=== PATIENT | female | born 1930 | race Caucasian/White ===

== ENCOUNTER 2020-10-03 12:02 | Inpatient (IN) | payer OTHER ==
[~2020-10-03] VITALS: Ht 157.5 cm; Wt 47.7 kg
--- NOTE | ~2020-10-03 | HC ---
[facility] [place] [address] CONSULTATION Name: Room #: 202-P ADM IN M.R.#: [id number] Admission: 10/03/20 Attend Phys: Juan Sanchez MD Discharge: Date of : [birth year] Report #: [id number] THIS REPORT FOR: cc: Kylie Beauchamp MD, Nidal MD Wright,Ulysses Lara MD ~ DATE OF SERVICE: 10/08/2020 CHIEF COMPLAINT: Urinary retention. HISTORY OF PRESENT ILLNESS: This is an 89-year-old female who was admitted to [facility] on 10/03/2020 with acute mental status changes. She was found to have what appears to be a cerebrovascular accident. Neurology has been consulted and she has undergone medical treatment. She had contrasted CT scan of her head at the time of her initial visit. She had some noted abdominal swelling and a KUB was ordered yesterday. The KUB showed that she had some distention of her bladder with contrast retaining and a Thompson catheter was instilled into her urethra initially draining about 700 Ml; and since then, she has drained about 700 mL more of urine over the last 24 hours. She is a relatively poor historian. PAST MEDICAL HISTORY: Significant for cerebrovascular accident, anemia, atrial fibrillation. ALLERGIES: No known drug allergies. PAST UROLOGIC HISTORY: Unknown. MEDICATIONS: Currently in the hospital, she is on azithromycin, aspirin, vitamin D, Lovenox, ceftriaxone, diltiazem, digoxin, atorvastatin, and Haldol. PHYSICAL EXAMINATION: VITAL SIGNS: She is afebrile. Vital signs stable. GENERAL: Alert and oriented x 1. Mucous membranes are moist. EYES: Sclerae are anicteric. NECK: Supple. LUNGS: Clear. ABDOMEN: Soft, nontender. BACK: No CVA tenderness. Normal curvature. EXTREMITIES: No edema. Thompson catheter draining clear urine. PELVIS : Shows that she has no evidence of any pelvic organ prolapse. 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 LABORATORY DATA: Her urinalysis is negative. Her chemistry shows a creatinine [facility] [address] [place] [address] CONSULTATION Name: Room #: 202-[facility] IN M.R.#: [id number] Admission: 10/03/20 Attend Phys: Juan Sanchez MD Discharge: Date of : [birth year] Report #: [id number] of 1.3 at baseline. Electrolytes are otherwise stable. White blood cell count is 12,000, hemoglobin is 8.5, and platelets are 210. KUB shows distended bladder with no evidence of contrast in her kidneys. Renal sonogram was performed and it shows that she has small kidneys and a nondistended bladder. There is mild pelviectasis on the left side, no hydronephrosis, and a questionable echogenic focus, possibly a stone in the right lower kidney. ASSESSMENT AND PLAN: 1. Retained contrast in bladder with likely chronic urinary retention. She has no associated hydronephrosis with this. Her creatinine is 1.3 and at baseline. This is likely chronic state for her. 2. Acute mental status changes with cerebrovascular accident. 3. Anemia. PLAN: 1. She is going to rehabilitation. We will recommend for her to start Flomax and, when she is more ambulatory in a couple of days, perform a voiding trial to see if she drains her bladder. 2. Aggressive bowel management since she has not had a bowel movement over 4 days; and once she has her bowel movement, this should help alleviate some of her retention issues as well. We will have Ms. Mar Wagner follow up with her in the next few days to initiate her voiding trial in the future. Questions all answered with her and the nursing staff. By: [id number] Ulysses Venegas MD /nt
[~2020-10-03 12:02] MED LIST: ASPIRIN325 PO
[2020-10-03 12:18] VITALS: BP 109/85
[2020-10-03 12:35] LABS: ABSOLUTE NEUTROPHILS 5.9 thou/uL (1.4-8.2); HEMOGLOBIN 8.6 gm/dL (12.0-15.0); LYMPHOCYTES 20.3 % (24.0-44.0); MCH 37.5 pg (26.0-34.0); MCHC 33.1 g/dL (28.0-37.0); MCV 113.3 fL (80.0-100.0); MONOCYTES 10.7 % (1.0-8.0); PLATELET COUNT 282 thou/uL (150-400); RDW 19.1 % (10.5-14.5); WBC 8.9 thou/uL (4.0-11.0)
[2020-10-03 12:56] LABS: ANION GAP 8 mmol/L (7-16); BUN 20 mg/dL (7-18); CHLORIDE 106 mmol/L (98-107); CO2 29 mmol/L (21-32); CREATININE 1.3 mg/dL (0.6-1.0); GLUCOSE 121 mg/dL (74-106); POTASSIUM 4.2 mmol/L (3.5-5.1); SODIUM 143 mmol/L (136-145)
[2020-10-03 12:57] LABS: PROTIME 10.9 Seconds (9.3-11.4)
[2020-10-03] MEDS ORDERED: LISINOPRIL2.5 MG PO (13:00)
[2020-10-03] MEDS ORDERED: LOPRESSOR50 PO (13:00)
[2020-10-03] MEDS ORDERED: DIGOXIN125 MCG PO (13:00)
[2020-10-03 13:06] LABS: ALBUMIN 3.7 g/dL (3.4-5.0); SGOT 9 U/L (15-37); SGPT 15 U/L (30-65); TOTAL BILIRUBIN 0.6 mg/dL (0.2-1.0); TOTAL PROTEIN 7.6 g/dL (6.4-8.2); TROPONIN-I <0.06 ng/mL (<0.06)
[2020-10-03 14:06] LABS: URINE BILIRUBIN NEGATIVE (Negative); URINE BLOOD NEGATIVE (Negative); URINE CLARITY CLEAR; URINE COLOR YELLOW; URINE GLUCOSE-RANDOM* NEGATIVE (Negative); URINE KETONES NEGATIVE (Negative); URINE LEUKOCYTES-REFLEX NEGATIVE (Negative); URINE NITRITE-REFLEX NEGATIVE (Negative); URINE PROTEIN (DIPSTICK) NEGATIVE (Negative); URINE UROBILINOGEN 0.2 E.U./dl (0.2-1.0)
--- NOTE | 2020-10-03 14:19 | NUR ---
SPEECH THERAPY CALLED FOR CONSULT AT THIS TIME
--- NOTE | 2020-10-03 15:37 | EKG ---
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 : 1930 Requested By: Alex Sow Order Number: [id number] : Maurilio Fernandes Measurements Intervals [place] Rate: 66 P: MN: QRS: -9 QRSD: 89 T: -49 QT: 360 QTc: 378 Interpretive Statements Atrial fibrillation Low voltage, extremity leads LVH with secondary repolarization abnormality Anterior Q waves, possibly due to LVH No previous ECG available for comparison Electronically Signed On 10-03-2020 15:37:33 DRESSMAKING TEACHER by Maurilio Fernandes [email or web address] <ELECTRONICALLY SIGNED> By: Maurilio Fernandes MD, [facility] 10/03/20 1537 1255 1255 Maurilio Fernandes MD, FACC /EPI
[2020-10-03 15:58] VITALS: BP 176/79
[2020-10-03 16:12] VITALS: BP 143/78
--- NOTE | 2020-10-03 17:40 | NUR ---
TO UNIT FROM E.D. BY CART. IMMEDIATELY COMBATIVE, HITTING, SCRATCHING, KICKING. MOSTLY UNINTELLIGIBLE SPEECH EXCEPT FOR CURSE WORDS. YELLS AT TIMES. DR. DE GUZMAN CALLED FOR ORDERS. FALL PRECAUTIONS IN PLACE. SITTER AT BEDSIDE.
[2020-10-03 19:40] VITALS: BP 141/82
[2020-10-03 19:57] LABS: ANISOCYTOSIS 2+; MACROCYTES 3+
[2020-10-04 01:06] LABS: GLYCOHEMOGLOBIN (HGB A1C) 5.5 % (4.8-5.6)
[2020-10-04 05:31] LABS: HEMATOCRIT 25.7 % (37.0-47.0); HEMOGLOBIN 8.3 gm/dL (12.0-15.0); MCH 36.4 pg (26.0-34.0); MCHC 32.2 g/dL (28.0-37.0); RBC 2.27 mil/uL (4.20-5.00); WBC 12.5 thou/uL (4.0-11.0)
[2020-10-04 05:46] LABS: ANION GAP 11 mmol/L (7-16); BUN 16 mg/dL (7-18); CALCIUM 8.6 mg/dL (8.5-10.1); CHLORIDE 105 mmol/L (98-107); CHOLESTEROL 138 mg/dL (<200); CO2 25 mmol/L (21-32); CREATININE 1.3 mg/dL (0.6-1.0); GLUCOSE 138 mg/dL (74-106); HDL CHOLESTEROL 58 mg/dL (>40); LDL CHOLESTEROL 67 mg/dL (<100); POTASSIUM 3.6 mmol/L (3.5-5.1); SODIUM 141 mmol/L (136-145); TC:HDL 2.4 Ratio (Not establshd); TRIGLYCERIDE 65 mg/dL (<150); VLDL 13 mg/dL (<40)
[2020-10-04 06:02] LABS: SERUM ASSESSMENT Clear
--- NOTE | 2020-10-04 06:21 | NUR ---
PT SLEPT THROUGH SOME OF THE NIGHT. PT WILL BE COMBATIVE AND REFUSE CARES. ALERT TO SELF. NIH OF 3-4. WILL YELL AND GET AGIGTATED AT TIMES. FALL PRECAUTIONS IN PLACE. CONTINUING TO ASSESS CLOSESLY ACCORDING TO POC.
[2020-10-04 08:38] VITALS: BP 143/69
[2020-10-04 12:47] VITALS: BP 149/57
[2020-10-04 16:11] VITALS: BP 130/75
[2020-10-04 19:18] VITALS: BP 101/71
[2020-10-05 03:37] VITALS: BP 128/102
--- NOTE | 2020-10-05 05:24 | NUR ---
PT SLEPT THROUGH MOST OF THE NIGHT. PT IS ALERT TO SELF; CONFUSED. WILL GET AGITATED WHEN TOUCHED. PRN MEDS GIVEN. NIH SCORES OF 5. GARBLED WORDS; HARD TO UNDERSTAND AT TIMES. INCONTINENT OF URINE AND BOWEL; WEARING BRIEF. ASSESSMENTS CHARTED. FALL PRECAUTIONS IN PLACE. CONTINUING TO ASSESS ACCODING TO POC.
[2020-10-05 07:57] VITALS: BP 134/91
[2020-10-05 09:06] LABS: HEMATOCRIT 24.7 % (37.0-47.0); HEMOGLOBIN 8.2 gm/dL (12.0-15.0); MCH 38.1 pg (26.0-34.0); MCHC 33.4 g/dL (28.0-37.0); MCV 113.9 fL (80.0-100.0); RBC 2.17 mil/uL (4.20-5.00); RDW 18.2 % (10.5-14.5); WBC 8.9 thou/uL (4.0-11.0)
[2020-10-05 09:25] LABS: CALCIUM 8.4 mg/dL (8.5-10.1); CREATININE 1.4 mg/dL (0.6-1.0); POTASSIUM 3.8 mmol/L (3.5-5.1)
[2020-10-05 11:30] VITALS: BP 118/71
--- NOTE | 2020-10-05 13:45 | NUR ---
Case opened to follow for dc planning needs. Pt here with possible CVA and nuero workup is in progress with an EEG this am and MRI this afternoon. Pt is being evaluated by PT/OT/ST and [facility] rehab medicine. Pt's spouse [place] at bedside this am. He indicates that he is his 's caregiver due to her dementia. She is sba with gait and does not like to use an assistive device. They do have a cane and a FWW at home. He manages her medications and provides supervision and setup for adl's. He does all the IADL's. They have 14 steps to enter their home and then she can stay on the main level. She does have incont pending her diet and refuses to wear a brief. They have had [facility] in the past and would want to use them again at dc if needed. Her pcp is Dr.Nidal Beauchamp of the [facility] ([facility]). The pt is A&Ox1 during our visit and relies on spouse to answer questions. Pt's spouse is open to 5N acute rehab if recommended by the care. Should her stroke workup be negative he might be open to SNF at [facility], [facility] or [facility] pending her progress. Private duty and HH f/u discussed. He does feel they will need some private duty in the future as they have limited support system and no family locally. Support provided. Pt now on pureed diet with nectar thickened liquids trail per ST. Will follow.
[2020-10-05 15:27] VITALS: BP 146/81
--- NOTE | 2020-10-05 18:36 | HC ---
[facility] [place] [address] CONSULTATION Name: Room #: 202-P ADM IN M.R.#: [id number] Admission: 10/03/20 Attend Phys: Juan Sanchez MD Discharge: Date of : [birth year] Report #: [id number] THIS REPORT FOR: cc: Kylie Beauchamp MD, Nidal MD Khosla,Josué Greene MD ~ DATE OF SERVICE: 10/04/2020 HISTORY OF PRESENT ILLNESS: This is an 89-year-old female patient, who was seen by me late evening yesterday and the note is being dictated today. This patient was actually seen by me in the Emergency Room when the patient came in, but as I understood from the Emergency Room physician, they did not think I need to see the patient after talking to the patient's and I did not follow up this patient. This patient has presented with an altered mental status. We talked about TPA in this patient, but the declined TPA. As I understood from the Emergency Room physician, he did not think the patient wanted aggressive measures. Her quality of life was very poor and those things as summarized in the Emergency Room physician's note and Neurology consult was not requested at that time, even if it had come to Emergency Room and I did not see the patient or did the consultation. I tried to see her last night. She is pretty much unresponsive. She opens her eyes, but she does not do anything for me. She does not even follow simple commands. REVIEW OF SYSTEMS: From the record. It was carried out from the records and it looks like this patient has a history of atrial fibrillation and her EKG does show atrial fibrillation. Chest x-ray shows infiltrate. Her white count is up. This is a relevant 14-point review of system that I can get on this patient. A 14-point review of system was difficult and I did not call the patient's last night because it was late, but I will try to call him this morning, later on today. PAST MEDICAL HISTORY: Appeared to be positive for dementia and the patient needs a lot of help. FAMILY HISTORY: Unavailable. SOCIAL HISTORY: She needs a lot of help from the . PHYSICAL EXAMINATION: Indicate that she wakes up. To me, she does not say anything. She does not even follow commands on a regular basis. That makes the examination very difficult. I tried to do the cranial nerve examination, but she could not cooperate. Similarly, I tried to do the neuromuscular examinations. I can tell about the focality. When she came in, she was having [facility] [address] [place] [address] CONSULTATION Name: DARREN Room #: 202-P ADM IN M.R.#: [id number] Admission: 10/03/20 Attend Phys: Juan Sanchez MD Discharge: Date of : [birth year] Report #: [id number] altered mental status. She has atrial fibrillation. She is very thinly built individual, who I think she can hear and see, but her mentation is bad enough that she is unable to follow any commands. Her last blood pressure is 128/102, respirations 17, pulse is 97.9. Her GFR is low, but has not changed much even after contrast. She does not appear to be in respiratory difficulty. IMPRESSION: This patient had presented with altered mental status to Emergency Room and I had actually come to see this patient in the Emergency Room, but the consult was canceled because the patient's has declined aggressive treatment. My feeling was to give TPA in this patient and do the further workup for thrombectomy, but the declined TPA. No thrombus was found to present the information again to the to see if we want to do anything in that regard. She was not a thrombectomy candidate. First thing we need to decide is how aggressive to be in this patient. If we need to be aggressive, she needs an MRI to look for a stroke, which is a possibility. If we need to be aggressive, then the anticoagulation need to be considered, but my feeling from the was that he wants very conservative care and does not want any aggressive treatment and in that case, we need to plan accordingly and may consider something else like hospice on her. She also has increasing white count and chest x-ray appeared to be showing some infiltrate and that may be contributing to her altered mental status by causing encephalopathy, superimposed and underlying dementia, but the possibility of stroke also need to be excluded. I will talk to the hospitalist as well as this morning and then further management can be done. Thank you very much for this referral. <ELECTRONICALLY SIGNED> By: Josué Rios MD 10/05/20 1836 0540 [id number] Josué Rios MD /nt
[2020-10-05 19:52] VITALS: BP 127/65
--- NOTE | 2020-10-05 20:39 | NUR ---
PT APPEARS TO BE AT BASELINE. ABLE TO TELL ME HER NAME AND ANSWERS YES NO QUESTIONS. UP WITH ASSIST TO RECLINER. DOES NOT PULL AT LINES OR BECOME COMBATIVE. NO HALDOL ADMISTERED. ST CHARLEY SERRAT C NOTES. MEDS GIVEN CRUSHED WITH APPLE SAUCE. EEG COMPLETED SEE NOTES. HIGH FALL RISK. PT UNABLE TO DEMONSTRATE CALL LIGHT. CLOSE TO NURSE STATION. STAFF TO ANTICIPATE NEES. AND PROVIDE OVERSIGHT.
[2020-10-06 03:57] VITALS: BP 167/62
[2020-10-06 05:22] LABS: HEMATOCRIT 22.5 % (37.0-47.0); HEMOGLOBIN 7.4 gm/dL (12.0-15.0); MCH 37.8 pg (26.0-34.0); MCV 114.3 fL (80.0-100.0); RBC 1.97 mil/uL (4.20-5.00); RDW 18.4 % (10.5-14.5); WBC 8.5 thou/uL (4.0-11.0)
[2020-10-06 05:31] LABS: CALCIUM 8.3 mg/dL (8.5-10.1); CREATININE 1.5 mg/dL (0.6-1.0); POTASSIUM 3.6 mmol/L (3.5-5.1)
[2020-10-06 07:19] VITALS: BP 130/58
[2020-10-06 07:55] LABS: % SATURATION 50 % (20-39); IRON 68 ug/dL (50-170); TIBC 135 ug/dL (250-450)
--- NOTE | 2020-10-06 08:00 | NUR ---
ASSUME CARE 1900. PT/VITALS STABLE. BP RUNS HIGH SOMETIMES. NO PAIN NOTED. POOR TOLERANCE TO ACTIIVTY. ASSESSMENT ASA CHARTED. PROGRESSING SLOWLY WITH POC. PLAN IS FOR PT TO HAVE MRO TODAY. NO DISTRESS NOTED. WILL CONTIUE TO MONITOR AND FOLLOW WITH POC
[2020-10-06 08:11] LABS: FOLIC ACID 15.2 ng/mL (8.6-58.9)
--- NOTE | 2020-10-06 09:55 | NUR ---
CALLED AND WAS ABLE TO FILL OUT THE MRI FORMS WITH HIS HISTORY INFORMATION. STILL PENDING MRI, FAX'D TO THEM THIS AM-FORM.
--- NOTE | 2020-10-06 13:17 | NUR ---
WOUND CONSULT; ASSESSMENT OF THE RIGHT ARM REVEALED AN OLD DKIN TEAR WITH SACBBED AREAS. THE PATIENT IS PLEASANTLY CONFUSED. TRYING TO GET UP AND PULLING AT HER DRESSING ETC. RECOMMENDATIONS; A SILVER FOAM DRESSING SECURED WITH A TUBIGRIP. DISCUSSED WITH THE RN AND HER ATTEMPS TO GET UP.
--- NOTE | 2020-10-06 13:28 | NUR ---
PATIENT HAS DIAGNOSIS OF ACUTE CVA. PATIENT IS APPROPRIATE FOR ACUTE REHAB. AUTHORIZATION REQUESTED FROM INSURANCE THIS DATE FOR ACUTE REHAB STAY. AWAITING RESPONSE. UNLIKELY TO RECEIVE A RESPONSE PRIOR TO FRIDAY. THANK YOU FOR THIS REFERRAL.
--- NOTE | 2020-10-06 13:49 | NUR ---
MRI + for stroke. [facility] acute rehab has accepted and submitting for ins auth today. PT/OT/ST working with the pt. Spouse agreeable to acute rehab. Will follow.
--- NOTE | 2020-10-06 15:16 | NUR ---
FAXED CLINICAL UPDATE TO [facility] RECEIVED CONFIRMAITON AND LEFT MSG WITH INTAKE.
[2020-10-06 15:30] VITALS: BP 167/75
--- NOTE | 2020-10-06 15:48 | NUR ---
FAXED CLINICAL UPDATE TO [facility] SPOKE WITH [facility] IN INTAKE THEY CAN RESUME CARE AT DC IF NEEDED.
--- NOTE | 2020-10-06 15:52 | NUR ---
BACK OT BED POST PT/OT WORKING WITH HER, SHE IS PRETTY TIRED NOW OVERALL HAD A BUSY MORNING WITH MRI AND UP OUT OF BED X2.
--- NOTE | 2020-10-06 17:41 | NUR ---
CALLED TO UPDATE HIM ON HER MRI RESULTS AND THAT IT WAS + FOR A STROKE. HE WAS RELIEVED ALMOST SOUNDING TO LEARN OF SUCH AND IS "LOOKING FORWARD TO HER GETTING SOME REHAB UP ON 5N UNIT ON FRIDAY". EXPLAINED SHE HAD A GOOD DAY TODAY AND PT/OT WORKED HER HEAVILY AND SHE SLEPT AND ATE MUCH MORE THEN I HAVE SEEN PRIOR.
[2020-10-06 20:00] VITALS: BP 155/57
[2020-10-06 23:42] VITALS: BP 145/69
[2020-10-07] VITALS (8 sets, daily range): BP systolic 134–174; BP diastolic 60–96
[2020-10-07 05:59] LABS: HEMOGLOBIN 6.9 gm/dL (12.0-15.0); MCH 38.3 pg (26.0-34.0); WBC 7.9 thou/uL (4.0-11.0)
[2020-10-07 06:01] LABS: HEMATOCRIT 20.6 % (37.0-47.0); MCHC 33.4 g/dL (28.0-37.0); MCV 114.6 fL (80.0-100.0); RBC 1.8 mil/uL (4.20-5.00); RDW 18.2 % (10.5-14.5)
[2020-10-07 06:05] LABS: CALCIUM 8.9 mg/dL (8.5-10.1); CREATININE 1.3 mg/dL (0.6-1.0); MAGNESIUM 2.1 mg/dL (1.8-2.4); POTASSIUM 3.3 mmol/L (3.5-5.1)
--- NOTE | 2020-10-07 06:40 | NUR ---
ASSUME CARE 1900. PT/VITALS STABLE. A/O TO PERSON. AN STATE NAME AND DATE OF . FOLLOWS COMMANDS. NO AGGRESSION/ANXIETY NOTED. PT IS PLEASANT. NO RESIDUAL NOTED FROM CVA. NIH =1. ADEQUATE REST NOTED THROUGH THE NIGHT. NO DISTRESS NOTED. AFIB ON MONITOR WITH HR SOMTIMES IN ONE-TEES TO 120s. HOWEVER, HR MOSTLY CONTROLLED. ASSESSMENT CHARTED. PROGRESSING WELL WITH POC. PLAN IS POSSIBLE DISCHAGE WITHIN A FEW DAYS. WILL CONTINUE TO MONITOR AND FOLLOW WITH POC.
--- NOTE | 2020-10-07 15:00 | NUR ---
PT IS AWAKE, ORIENTED TO PLACE. PT HGB AT 6.[address] MONTIEL CONSULTED. PT CONSENT TO RECEIVE BLOOD PRODUCT SIGNED BY . PT RECEIVING ONE UNIT OF RBCS. NO REACTIONS NOTED. PT IS RESTING COMFORTABLY. FALL PRECAUTIONS IN PLACE. WILL CONTINUE TO MONITOR TOLERANCE OF BLOOD PRODUCT/FLUIDS. PT LEFT. NO CONCERNS AT THIS TIME.
--- NOTE | 2020-10-07 16:38 | NUR ---
ASSUMMED PT CARE AT APPROXIMATELY 0700. PT A&O X1. HX OF DEMENTIA. ASSESSMENT CHARTED. FALL PRECAUTIONS IN PLACE. PT DENIES HAVING CHEST PAIN. PT DENIES HAVING SOB. INFORMED DR. MONTIEL OF LOW HGB LEVEL. ONE UNIT OF RBC TRANSFUSED. PT TOLERATED TRANSFUSION. VITAL SIGNS STABLE. INFORMED PT'S OF POC. PT'S STATED UNDERSTANDING AND DENIED HAVING FURTHER QUESTIONS. PT UP TO CHAIR THROUGHOUT SHIFT. ENCOURAGED PT TO EAT AND DRINK. PT HAS LOW APPETITE. PT COMFORTABLE. PT DENIES HAVING FURTHER CONCERNS.
--- NOTE | 2020-10-07 17:06 | NUR ---
PT IS ORIENTED TO SELF; PT WAS ENCOURAGED TO EAT LUNCH AND DINNER. PT ONLY WANTED NECTAR THICK WATER, WHICH MEDICATIONS WERE GIVEN. PT LEFT PRIOR TO GIVING BLOOD PRODUCT. PT STATED "HE NEVER CAME BACK." POC TO CONTINUE TO ENCOURAGE FLUIDS AND EATING. PT IS ON PUREED THICK/NECTAR THICK DIET. SIMULATION TECHNICIAN AND RN HAVE ASSISTED PT WITH FEEDING. PT REFUSED LUNCH AND DINNER, MAGIC CUP AND ENSURE PUDDING.
[2020-10-07 18:06] LABS: HEMATOCRIT 30.6 % (37.0-47.0)
[2020-10-07 18:10] LABS: HEMOGLOBIN 10.1 gm/dL (12.0-15.0)
[2020-10-08 04:44] VITALS: BP 157/56
[2020-10-08 04:51] LABS: HEMATOCRIT 25.7 % (37.0-47.0); HEMOGLOBIN 8.5 gm/dL (12.0-15.0); MCH 35.3 pg (26.0-34.0); MCHC 33.3 g/dL (28.0-37.0); RBC 2.42 mil/uL (4.20-5.00); RDW 24.3 % (10.5-14.5); WBC 12.9 thou/uL (4.0-11.0)
[2020-10-08 05:03] LABS: MCV 106.2 fL (80.0-100.0)
[2020-10-08 05:06] LABS: CALCIUM 8.4 mg/dL (8.5-10.1); CREATININE 1.3 mg/dL (0.6-1.0)
[2020-10-08 05:11] LABS: POTASSIUM 4.5 mmol/L (3.5-5.1)
--- NOTE | 2020-10-08 06:28 | NUR ---
SLEPT MOST OF SHIFT. REMAINS ORIENTED X1 AND KNOWS SHE IS NOT HOME. TEMP THIS AM 100.6 AXILLARY, ROOM VERY WARM AND PATIENT WITH SEVERAL BLANKETS. BLANKETS REMOVED TEMP IN ROOM ADJUSTED AND FAN ON. NO COMPLAINTS OF PAIN. WORKING ON GOALS AND PLAN OF CARE FOR NOC. CONTINUE TO ASSES.
[2020-10-08 07:09] VITALS: BP 150/53
[2020-10-08 11:17] VITALS: BP 146/55
[2020-10-08 15:24] VITALS: BP 143/60
--- NOTE | 2020-10-08 15:29 | NUR ---
PT IS AWAKE, ORIENTED TO SELF ONLY. PT HAS STATED THAT SHE IS "READY TO GO." PT AT BEDSIDE THIS AM. CONDUCTED EDUCATION ON PT'S DIET OF PUREED/HONEY THICK. PT HAS BEEN SOMNOLENT THIS PM. POC IS TO CONTINUE ABX; MONITOR HR/BP. PT IS RESTING COMFORTABLY, DENIES PAIN. FALL PRECAUTIONS IN PLACE. NO CONCERNS AT THIS TIME.
--- NOTE | 2020-10-08 20:12 | NUR ---
REVIEWED ALL DOCUMENTATION COMPLETED BY ROE IZAGUIRRE RN. THIS RN AGREES WITH ALL CURRENT CHARTING AND DOCUMENTATION.
[2020-10-08 21:10] VITALS: BP 153/70
[2020-10-09 03:50] VITALS: BP 147/72
[2020-10-09 04:45] LABS: CALCIUM 8.2 mg/dL (8.5-10.1); CREATININE 1.2 mg/dL (0.6-1.0); MAGNESIUM 1.9 mg/dL (1.8-2.4); POTASSIUM 3.7 mmol/L (3.5-5.1)
[2020-10-09 05:05] LABS: HEMATOCRIT 24.9 % (37.0-47.0); HEMOGLOBIN 8.4 gm/dL (12.0-15.0); MCHC 33.5 g/dL (28.0-37.0); MCV 107.4 fL (80.0-100.0); RBC 2.32 mil/uL (4.20-5.00); RDW 23.9 % (10.5-14.5); WBC 8.7 thou/uL (4.0-11.0)
--- NOTE | 2020-10-09 06:20 | NUR ---
SLEPT PART OF SHIFT. WORKING ON GOALS AND PLAN OF CARES FOR NOC. PROGRESSING TOWARDS TRANSFER TO REHAB SOON. DENIES COMPLAINTS OF PAIN. REMAINS ORIENTED TO SELF ONLY, KNOWS SHE IS NOT HOME AND STATES "I'M READY TO ". CONTINU TO ASSES CLOSELY.
[2020-10-09 08:44] VITALS: BP 152/70
--- NOTE | 2020-10-09 10:45 | EEG ---
[facility] [place] [address] ELECTROENCEPHALOGRAM Name: Room #: 202-P ADM IN M.R.#: [id number] Admission: 10/03/20 Attend Phys: Juan Sanchez MD Discharge: Date of : [birth year] Report #: [id number] THIS REPORT FOR: //name// DATE OF SERVICE: 10/05/2020 This patient is being evaluated for altered mental status. EEG was done by placing the electrode by standard 10-20 system of electrode placement. Both referential and sequential montages were used for recording. Background activity in this patient is difficult to determine because it is low voltage. It would appear it is about 6-7 Hz and 10-15 microvolt. It is a poorly formed throughout the record. Photic stimulation is unremarkable. No active epileptiform activity was noticed. The patient appeared to be drowsy during part of this EEG and that is associated with bilateral slowing. IMPRESSION: This is an abnormal EEG because it is disorganized and poorly formed. That is a nonspecific abnormality, which can occur with encephalopathy, effect of psychotropic medication, dementia, etc. Clinical correlation is recommended. <ELECTRONICALLY SIGNED> By: Josué Rios MD 10/09/20 1045 [id number] Josué Rios MD /nt
[2020-10-09 12:36] VITALS: BP 133/58
--- NOTE | 2020-10-09 15:22 | NUR ---
Spoke with patient and spouse at bedside. [facility] in process of submitting auth. Discussed with spouse options for post acute care if insurance does not auth [facility]N. Reviewed [employer] list. Some facilities are allowing visitor after quantine. Spouse interested in those facilities. If [facility] allows visitors spouse would want referral to [facility]. Mentioned to spouse quarantine initially at skilled facility then visits but unsure spouse understood that would imply no visitors for 14 days initially. Spouse reports even with assistance from staff unable to zoom or use ipad. Spouse reports he has a cell phone but does not use. To reach spouse call his landline phone. Called spouse initially prior to visit to hospital and phone rang with no answering machine. Patient/spouse strongly prefer acute rehab [facility]. casemgt following.
--- NOTE | 2020-10-09 15:58 | NUR ---
report given to gab hernandez pt transferred to room 234.
--- NOTE | 2020-10-09 16:24 | NUR ---
PT TRANSFERRED FROM [address] [place] [address] TO ROOM 434 REPORT FROM 2N NURSE. Holly 98.2 20 55 135/75 O2SAT= 97% RA. PT ALERT TO SELF . IV ABT INFUSING ORDERED. PT W/O PAIN OR RESP DISTRESS. AT BEDSIDE.
--- NOTE | 2020-10-09 17:04 | NUR ---
CALL RECEIVED AT 5:00 PM THIS DATE FROM [employer] INSURANCE WITH DENIAL FOR ACUTE REHAB ADMISSION. REASON GIVEN WAS THAT "LEVEL OF CARE NOT NEEDED." PEER TO PEER CAN BE PERFORMED AND MUST BE INITIATED BY 12:00/NOON 10/10/20 - PHONE NUMBER [phone]. COOK'S ASSISTANT INFORMED.
[2020-10-09 22:00] VITALS: BP 137/75
[2020-10-10 03:21] VITALS: BP 146/88
--- NOTE | 2020-10-10 03:30 | NUR ---
ASSUMED PT CARE AT 1900.PT LETHARGIC AT START OF SHIFT.PT EASILY AROUSABLE NOW.ALERT TO SELF,CONFUSED AND FORGETFUL.VSS.PT WITH COUGH WHENEVER SHE DRINKS HER HONEY THICK LIQUID.MEDS CRUSHED IN PUDDING,PT CHRISTOPHER WELL.STOOL FOR OCCULT BLOOD STILL NEEDED,NO STOOL NOTED SO FAR.DRSG TO HER R ARM STILL INTACT.CALL LIGHT WITHIN REACH.
[2020-10-10 08:39] VITALS: BP 133/65
--- NOTE | 2020-10-10 08:39 | NUR ---
ON-GOING ASSESSMENT: CM REVIEWED CHART. PT WAS TRANSFERED YESTERDAY FROM . CM WAS NOTIFIED BY [facility] ON [facility] THAT INSURANCE DENIED ACUTE REHAB. CM REACHED OUT AND SPOKE WITH PATIENTS VISITING IS VERY IMPORTANT TO HIM. CM DISCUSSED MOST SNF DO NOT ALLOW VISITORS AT THIS TIME BUT SOME ALLOW VISITATION AFTER 14 INITIAL DAYS OF QUARENTINE. PTS STATING HE IS INTERESTED IN [facility] THEY ALLOW A VISITOR AFTER 14 DAYS OF QUARENTINE. CM FAXED REFERRAL TO [facility]. CM SENT UPDATES THIS AM AND ASKED THAT THEY REVIEW AND SUBMIT FOR AUTH. CM WILL CONTINUE TO FOLLOW TO ASSIST NEEDED.
[2020-10-10 18:29] VITALS: BP 135/68
--- NOTE | 2020-10-10 18:57 | NUR ---
ASSUMED PATIENT CARE AT 0700. A/O X2. GENERLIZED WEAKNESS. ASSISTED PATIENT WALK WITH WALKER TO BATHROOM. ASSISTED PATIENT MEELS. . SLOWLY TOWARDS POC GOALS.
[2020-10-10 20:34] VITALS: BP 171/76
--- NOTE | 2020-10-11 03:26 | NUR ---
PT MORE AWAKE TODAY.PT UNABLE TO VOICE CONCERNS.PT INCONTINENT OF BMXI,UNABLE TO COLLECT STOOL BC IT WAS SMEARED ON THE BED.PT STILL CONFUSED AND FORGETFUL.DRSG TO THE SKIN TEAR ON HER RFA CHANGED,COVERED WITH TUBIGRIP.BARTLETT CATH TO DD WITH BLOOD TINGED URINE NOTED IN THE BAG.SWALLOW PREC. IN PLACE. PT SLEEPING ON HER BED AT THIS TIME,CALL LIGHT WITHIN REACH.
[2020-10-11 05:55] VITALS: BP 144/72
[2020-10-11 07:45] VITALS: BP 166/75
[2020-10-11] MEDS ORDERED: FLOMAX0.4 MG PO (14:42)
[2020-10-11] MEDS ORDERED: LIPITOR 20 MG T20 M1 PO (14:44)
[2020-10-11] MEDS ORDERED: VITAMIN D21250 MC1 PO (14:45)
--- NOTE | 2020-10-11 15:21 | NUR ---
on-going assessment: CM REVIEWED CHART AND SPOKE WITH LIASON FROM [facility] TO SEE IF THEY CAN ACCEPT PATIENT TODAY. THEY REPORT THEY ARE REQUESTING ANOTHER NEGATIVE COVID TESET DUE TO THEM REQUIRING TWO NEGATIVE TEST IN ORDER TO GO TO THE [facility]. CM NOTIFIED BEDSIDE RN. RESULTS OF THE TEST WERE FAXED TO FACILITY. LIASON FROM [facility] STATES THEY CAN ONLY ACCEPT ONE ADMISSION IN THE PM AND THEY ALREADY HAVE ACCEPTED SOMEONE SO PATIENT WILL NOT BE ABLE TO GO UNTIL THE AM. CM NOTIFIED ATTENDING WELL PATIENTS WHO IS AGREEABLE WITH THE PLAN. CM WILL CONTINUE TO FOLLOW, [facility] REQUEST DISCHARGE ORDERS TOMORROW AM SOON POSSIBLE. CM NOTIFIED ATTENDING.
[2020-10-11 17:00] VITALS: BP 128/62
--- NOTE | 2020-10-11 17:48 | NUR ---
PT WAS SEEN TODAY BY , WAS SCHEDULED FOR DISCHARGE BUT DUE TO PT'S BED BEING TAKEN UP BEFORE PT TRANSPORTAION COULD BE SET UP, DISCHARGE WILL HAVE TO WAIT UNTIL TOMORROW MORNING. PT'S COVID TEST CAME BACK NEGATIVE, WILL BE DISCHARGE, CASE MANAGMENT FOLLOWING. RN SIGNING OFF
[2020-10-11 19:04] VITALS: BP 173/87
[2020-10-12 04:13] VITALS: BP 165/94
--- NOTE | 2020-10-12 05:41 | NUR ---
ASSUMED CARE AT 1900. PT DENIES PAIN OR NAUSEA. PLEASANTLY CONFUSED. ONE EPISODE WHERE SHE GOT OUT OF BED, BED ALARM SOUNDED BUT SHE WAS VERY QUICK AND HAD ALREADY SAT IN THE CHAIR WHEN STAFF GOT IN THE ROOM. SENT A STOOL SAMPLE FOR OCCULT BLOOD. PLAN D/C TO SNF THIS AM. NO OTHER CONCERNS, WILL CONTINUE TO MONITOR.
[2020-10-12 08:09] VITALS: BP 159/76
[2020-10-12 09:35] VITALS: BP 159/76
--- NOTE | 2020-10-12 10:14 | NUR ---
ON-GOING ASSESSMENT: CM REVIEWED CHART AND SPOKE WITH ATTENDING. ORDERS ARE IN FOR DISCHARGE TODAY. CM NOTIFIED LIASON AT [facility] AND FAXED ORDERS AND CONFIRMED THEY RECEIVED IT. TRANSPORTATION HAS BEEN ARRANGED FOR . CM NOTIFIED PTS ALONG WITH BEDSIDE RN. BEDSIDE RN HAS THE NUMBER FOR REPORT. CHART COPY WAS ALREADY MADE. PT REPORTS NO FURTHER NEEDS FROM [facility] AT THIS TIME. [facility] ALSO FAXED NEGATIVE COVID TEST TO [facility].
--- NOTE | 2020-10-12 13:35 | NUR ---
PT A&O TO SELF, VSS, NO APPARENT PAIN. AT BEDSIDE. PATIENT DISCHARGED TO [facility]. ROOM AIR, NO SIGN OF DISTRESS. WOUND CARE GIVEN AND PHOTO TAKEN. ALL BELONGINGS SENT WITH PATIENT.
== END 2020-10-12 12:01 | DRG 64 ==
LOC: ER 12:02 → EROBS 14:27 → 2N 14:27 → 4S 10-09 15:48
PROVIDERS: Emergency Medicine; Internal Medicine; Psychiatry & Neurology Neuromuscular Medicine; ADMIT Hospitalist; ATTEND Hospitalist
PROC: 30233N1 Transfusion of Nonautologous Red Blood Cells into Peripheral Vein, Percutaneous Approach (ICD-10-PCS; principal; 2020-10-07)
DX: I63.9 Cerebral infarction, unspecified (principal); J18.9 Pneumonia, unspecified organism; N17.9 Acute kidney failure, unspecified; E46 Unspecified protein-calorie malnutrition; E87.1 Hypo-osmolality and hyponatremia; G81.94 Hemiplegia, unspecified affecting left nondominant side; Z68.1 Body mass index [BMI] 19.9 or less, adult; Z20.822 Contact with and (suspected) exposure to COVID-19; Z66 Do not resuscitate; D64.9 Anemia, unspecified; F03.90 Unspecified dementia, unspecified severity, without behavioral disturbance, psychotic disturbance, mood disturbance, and anxiety; E78.5 Hyperlipidemia, unspecified; N18.9 Chronic kidney disease, unspecified; G47.10 Hypersomnia, unspecified; R53.81 Other malaise; R13.10 Dysphagia, unspecified; I12.9 Hypertensive chronic kidney disease with stage 1 through stage 4 chronic kidney disease, or unspecified chronic kidney disease; E55.9 Vitamin D deficiency, unspecified; K59.00 Constipation, unspecified; R33.9 Retention of urine, unspecified; I48.91 Unspecified atrial fibrillation; Z87.891 Personal history of nicotine dependence; Z79.82 Long term (current) use of aspirin; Z79.899 Other long term (current) drug therapy
CPT/HCPCS: 10081; 10195

== ENCOUNTER 2020-11-09 07:59 | Inpatient (IN) | payer OTHER ==
[~2020-11-09] VITALS: Ht 160 cm; Wt 40.1 kg
--- NOTE | ~2020-11-09 | EMS ---
[facility] [address] [place] [address] EMS Patient Care Report Name: JOJO BANKS Room #: REG CYN Leslie#: [id number] Admission: 11/09/20 Attend Phys: Discharge: Date of : [birth year] Report #: [id number] THIS REPORT FOR: //name// Report Transmitted: 11/09/2020 08:01 EMS Care Summary [facility] MED-ACT Incident [id number] @ 11/09/2020 07:28 Incident Location [address] [place] [id number] Patient JOJO BANKS Female, 89 Years 1930 Patient Address [address] [place] [id number] Patient History Dementia,Hypertension (HTN),Anemia, Patient Allergies No known allergies, Patient Medications Metoprolol, Chief Complaint "al most fainted, low bp." Disposition Transported No Lights/[place] Reason Unconscious/Fainting Transported To [facility] Narrative Upon arrival to the scene, found the pt laying on the floor being assessed by S44. Staff informed crews that she was sitting at a table in her wheel chair when she became suddenly weak and slouched over. Staff check her BP and noted it to be low (around 60's systolic). Staff helped her out of the wheel chair [address] [address] EMS Patient Care Report Name: DARRENJANUARY Room #: REG CYN Leslie#: [id number] Admission: 11/09/20 Attend Phys: Discharge: Date of : [birth year] Report #: [id number] and laid her down. Her BP came up to 102 systolic. Pt's mental status, according to staff, did not change. Pt had no trauma nor any complaints. Assessment findings, V/s were obtained from S44. EKG of A-fib from [facility].. S44 informed crews that the pt was uncooperative while being assessed. She would use foul language and try and scratch. Pt was assisted from the ground to the stretcher and scratched a few responders. According to staff this is her normal, she will sometimes act like this. Pt was secured to [facility] via safety belts. Stretcher was secured in ambulance. PT appeared to have calmed down. PT would allow EMS to obtained BP and Spo2, Pt refused IV, Blood sugar check, or EKG. BIOCOM to [facility] with pt information only. PT rested during transport and pt's BP came up to 12 systolic. Upon arrival to [facility] pt was taken to room 7 via stretcher. PT was transferred from [facility] hospital bed via sheet drag method, Verbal report was given to RN and transfer of care was completed. 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,BP: 102/52 M,PULSE: 76,RR: 16 R,SPO2: 98 Ox,ETCO2: ,BG: ,PAIN: ,GCS: 15, 07:27,Call Received 07:27,Psap Call 07:28,Dispatched 07:29,En Route 07:35,On Scene 07:38,At Patient 07:44,Depart Scene 07:46,BP: 120/72 M,PULSE: 112,RR: 16 R,SPO2: 87 Ox,ETCO2: ,BG: ,PAIN: 0,GCS: 15, 07:48,BP: 123/71 M,PULSE: 101,RR: R,SPO2: 98 Ox,ETCO2: ,BG: ,PAIN: ,GCS: , 07:57,At Destination [address] [address] EMS Patient Care Report Name: Room #: MARY Leslie#: [id number] Admission: 11/09/20 Attend Phys: Discharge: Date of : [birth year] Report #: [id number] 08:10,Surgical Mask on Patient, 08:12,Call Closed Disclaimer v1.1 Copyright 2020 [employer] This EMS Care Summary contains data elements from the applicable legal record (which may be displayed differently). It is designed to provide pertinent information for the following purposes: continuity of care, clinical quality, and state data reporting. The complete legal record is available to ED staff and administrators of the receiving hospital in [employer] Patient Tracker. All data is provided "as is."
[~2020-11-09 07:59] MED LIST changes: +DIGOXIN125 MCG PO; +FLOMAX0.4 MG PO; +LIPITOR 20 MG T20 M1 PO; +LISINOPRIL2.5 MG PO; +LOPRESSOR50 PO; +VITAMIN D21250 MC1 PO
[2020-11-09 08:01] VITALS: BP 125/57
[2020-11-09 08:28] LABS: ABSOLUTE NEUTROPHILS 2.4 thou/uL (1.4-8.2); BASOPHILS 1.4 % (0.0-2.0); EOSINOPHILS 1.8 % (0.0-3.0); HEMATOCRIT 21.3 % (37.0-47.0); HEMOGLOBIN 7.1 gm/dL (12.0-15.0); LYMPHOCYTES 24.4 % (24.0-44.0); MCH 35.9 pg (26.0-34.0); MCHC 33.2 g/dL (28.0-37.0); MCV 108.2 fL (80.0-100.0); MONOCYTES 19.6 % (1.0-8.0); PLATELET COUNT 233 thou/uL (150-400); POLYS 52.8 % (36.0-66.0); RBC 1.97 mil/uL (4.20-5.00); RDW 20.8 % (10.5-14.5); WBC 4.5 thou/uL (4.0-11.0)
[2020-11-09 08:35] LABS: ANION GAP 10 mmol/L (7-16); BUN 43 mg/dL (7-18); CALCIUM 8.7 mg/dL (8.5-10.1); CHLORIDE 109 mmol/L (98-107); CO2 26 mmol/L (21-32); CREATININE 1.5 mg/dL (0.6-1.0); GLUCOSE 125 mg/dL (74-106); SODIUM 145 mmol/L (136-145)
[2020-11-09 08:36] LABS: POTASSIUM 4.6 mmol/L (3.5-5.1)
[2020-11-09 08:43] LABS: URINE BILIRUBIN NEGATIVE (Negative); URINE BLOOD NEGATIVE (Negative); URINE CLARITY CLEAR; URINE COLOR YELLOW; URINE GLUCOSE-RANDOM* NEGATIVE (Negative); URINE KETONES TRACE (Negative); URINE NITRITE-REFLEX NEGATIVE (Negative); URINE PROTEIN (DIPSTICK) NEGATIVE (Negative); URINE UROBILINOGEN 0.2 E.U./dl (0.2-1.0)
[2020-11-09 08:49] LABS: URINE LEUKOCYTES-REFLEX 1+ (Negative)
[2020-11-09 08:50] LABS: ALBUMIN 3.3 g/dL (3.4-5.0); SGOT 20 U/L (15-37); SGPT 10 U/L (30-65); TOTAL BILIRUBIN 0.8 mg/dL (0.2-1.0); TOTAL PROTEIN 6.9 g/dL (6.4-8.2); TROPONIN-I <0.06 ng/mL (<0.06)
[2020-11-09 09:03] LABS: CASTS None Seen /LPF (None Seen); CRYSTALS None Seen /LPF (None Seen); SQUAMOUS 4-10 Moderate /LPF (0-3)
[2020-11-09 09:04] LABS: URINE WBC-REFLEX 0-5 Rare /HPF (0-5); YEAST-REFLEX Present (None Seen)
[2020-11-09 09:05] LABS: BACTERIA-REFLEX 1-9 Few /HPF (None Seen); URINE RBC None Seen /HPF (0-2)
[2020-11-09 09:05] LABS: DIGOXIN 0.9 ng/mL (0.9-2.0)
--- NOTE | 2020-11-09 09:55 | NUR ---
DR. WAGGONER HERE TO EXAMINE PATIENT.
[2020-11-09] MEDS ORDERED: ASPERCREME1 EACH TOP (10:26)
[2020-11-09] MEDS ORDERED: ADULT ASPIRIN R81 MG PO (10:27)
[2020-11-09] MEDS ORDERED: LIPITOR 20 MG T20 M1 PO (10:27)
[2020-11-09] MEDS ORDERED: BISACODYL10 MG RECTAL (10:28)
[2020-11-09] MEDS ORDERED: DEPAKOTE125 MG PO (10:28)
[2020-11-09] MEDS ORDERED: DIGOX125 MCG PO (10:29)
[2020-11-09] MEDS ORDERED: VITAMIN D21250 MC1 PO (10:30)
[2020-11-09] MEDS ORDERED: EXELON1 EACH TRANSDERM (10:30)
[2020-11-09] MEDS ORDERED: LEVO-T25 MCG PO (10:30)
[2020-11-09] MEDS ORDERED: LISINOPRIL5 MG PO (10:31)
[2020-11-09] MEDS ORDERED: LORAZEPAM0.5 MG/1 M PO (10:32)
[2020-11-09] MEDS ORDERED: METOPROLOL TART25 MG PO (10:33)
[2020-11-09] MEDS ORDERED: NAPROXEN500 MG PO (10:34)
[2020-11-09] MEDS ORDERED: SENNA PLUS TAB1 EACH PO (10:35)
[2020-11-09] MEDS ORDERED: FLOMAX0.4 MG PO (10:35)
--- NOTE | 2020-11-09 11:12 | EKG ---
[address] [place] [address] ELECTROCARDIOGRAM REPORT Name: JOJO BANKS Room #: 170-7 ADM IN M.R.#: [id number] Admission: 11/09/20 Attend Phys: Tori Segura MD Discharge: Date of : [birth year] Report #: [id number] [facility] Test Date: 2020-11-09 Test Time: 08:09:03 Pat Name: JOJO BANKS Department: Room: 170 Gender: F Brim Rounder: MARTHA : 1930 Requested By: Chica Villalta Order Number: [id number] MD: Maurilio Fernandes Measurements Intervals [place] Rate: 74 P: LA: QRS: 5 QRSD: 85 T: QT: 360 QTc: 400 Interpretive Statements Atrial fibrillation Borderline repolarization abnormality Compared to ECG 10/03/2020 12:55:31 Left ventricular hypertrophy no longer present Q waves no longer present Electronically Signed On 11-09-2020 11:11:50 CDT by Maurilio Fernandes [email or web address] <ELECTRONICALLY SIGNED> By: Maurilio Fernandes MD, FACC 11/09/20 1111 0809 8 Maurilio Fernandes MD, FACC /EPI
[2020-11-09 11:55] LABS: ANISOCYTOSIS 2+
[2020-11-09 11:56] LABS: MACROCYTES 2+; OVALOCYTES 1+
[2020-11-09 12:51] LABS: FOLIC ACID 12.9 ng/mL (8.6-58.9)
[2020-11-09] MEDS ORDERED: FOSAMAX 70 MG T70 MG PO (12:51)
[2020-11-09] MEDS ORDERED: LORAZEPAM 1 MG T1 MG PO (12:52)
[2020-11-09] MEDS ORDERED: CALCIUM CARBON500 MG PO (12:54)
[2020-11-09 17:30] VITALS: BP 144/82
--- NOTE | 2020-11-09 19:41 | NUR ---
PT ARRIVED TO FLOOR 1710. POOR HISTORIAN DUE TO DIMENTIA. AFEBRILE, VSS. AFIB RATE CONTROLLED ON MONTIOR.
[2020-11-09 20:45] VITALS: BP 128/63
[2020-11-10] VITALS (7 sets, daily range): BP systolic 127–182; BP diastolic 64–94
[2020-11-10 05:20] LABS: MCH 36.4 pg (26.0-34.0); RBC 1.61 mil/uL (4.20-5.00)
[2020-11-10 05:22] LABS: MCHC 33.5 g/dL (28.0-37.0); MCV 108.5 fL (80.0-100.0); RDW 20.9 % (10.5-14.5); WBC 4.4 thou/uL (4.0-11.0)
[2020-11-10 05:31] LABS: HEMATOCRIT 17.5 % (37.0-47.0); HEMOGLOBIN 5.9 gm/dL (12.0-15.0)
[2020-11-10 06:01] LABS: CALCIUM 7.4 mg/dL (8.5-10.1); CREATININE 1.1 mg/dL (0.6-1.0)
[2020-11-10 06:15] LABS: POTASSIUM 3.4 mmol/L (3.5-5.1)
--- NOTE | 2020-11-10 07:40 | NUR ---
ASSESSMENT DOCUMENTED.PT RESTING IN BED AT THIS TIME IN NO ACUTE DISTRESS.A/OX1.FOLLOWS COMMANDS AT TIMES.VSS.AFEBRILE.PT UNCO-OPERATIVE AT TIMES AND FIGHT WITH STAFF.PT UNABLE TO VOID THIS SHIFT,BLADDER SCAN SHOWED RESIDUAL OF 550CC.FILTERATION OPERATOR NOTIFIED,ORDER GIVEN TO STRAIGHT CATH X1.750CC OF DARK YELLOW CONCENTRATED URINE OBTAINED VIA STRAIGHT CATH,PT TOLERATED PROCEDURE.NPO AFTER MIDNOC FOR PLANNED EGD TODAY.HGB THIS AM 5.9,ORDERS GIVEN TO BLOOD TRANSFUSE 1UNIT OF PRBCs.CONSENT FORM OBTAINED FROM THE VIA TELEPHONE AND WITNESSED BY ANOTHER RN. ALSO GAVE CONSENT TO PERFORM EGD VIA PHONE ADN WITNESSED BY ANOTHER RN.REPORT GIVEN TO DAY RN.
[2020-11-10 11:48] LABS: HEMATOCRIT 23.5 % (37.0-47.0)
[2020-11-10 11:54] LABS: HEMOGLOBIN 8.1 gm/dL (12.0-15.0)
--- NOTE | 2020-11-10 12:25 | NUR ---
Case opened to follow for dc planning. Pt admitted with GI bleed and getting blood today. EGD in the am. Message rec'd from Rn that spouse does not want the pt to return to the memory care unit at [facility]. Pt with hx of dementia. Left message for pt's spouse at his home number. Spouse will be in later this afternoon. The [facility] liason confirmed the pt is a [facility] resident. She is private pay after [employer] stopped paying for skilled rehab last month. No weekend dc anticipated. Will f/u with spouse regarding dc planning efforts. Functional status updated requested from [facility] to see if the pt may require snf at dc or alternate ltc placement. [facility] is holding her bed currently but will need to verify pt/spouse intentions as they are charging a bed hold. They are willing to accept for readmission if [employer] would approve another snf stay. Their socialworker was working with the spouse on alternate placement but struggling as pt has urinary retention and often pulls out her hernandez. They do have to bladder scan and st cath and most memory care units will not do this. Their socialworker will f/u with the memory care they had sent a referral to recently to see if they would accept.
--- NOTE | 2020-11-10 16:58 | NUR ---
patient had edg procedure today. no active bleeding found. gastritis, ulcer and hiatial hernia. hgb increased after 1 uprbc. mid afternoon patient became extremely agitated, hostile, combative, kicking and punching. notified. patient in soft wrist restraints at 1600. Consult Dr Biggs. Dr. Segura to call back Dr Biggs phone number [phone]
[2020-11-11 03:17] VITALS: BP 149/99
[2020-11-11 04:44] LABS: CALCIUM 8.2 mg/dL (8.5-10.1); POTASSIUM 3.7 mmol/L (3.5-5.1)
[2020-11-11 05:05] LABS: HEMATOCRIT 28.5 % (37.0-47.0); HEMOGLOBIN 9.6 gm/dL (12.0-15.0); MCHC 33.5 g/dL (28.0-37.0); MCV 104.5 fL (80.0-100.0); RBC 2.73 mil/uL (4.20-5.00); RDW 22.3 % (10.5-14.5); WBC 9.4 thou/uL (4.0-11.0)
[2020-11-11 07:55] VITALS: BP 136/64
[2020-11-11] MEDS ORDERED: PROTONIX40 M2 PO (08:22)
[2020-11-11] MEDS ORDERED: DIFLUCAN100 MG PO (08:27)
--- NOTE | 2020-11-11 09:10 | NUR ---
RESTRAINTS REMOVED AT THIS TIME, SKIN IS INTACT, MILD REDNESS NOTED TO BILATERAL WRISTS. RIGHT FORARM IV REMOVED D/T REDNESS AND SWELLING AROUND AREA. PT TOLERATED WELL. REFRESHENTS PROVIDED AND CALL LIGHT IN REACH
--- NOTE | 2020-11-11 13:00 | NUR ---
DR NOTIFIED D/T PT CONT TO BE LARRY IN THE HIGH 30-LOW 40S. PT ALERT AND ATE 75% OF BREAKFAST, BEEN LETHARGIC SINCE MED PASS AND REFUSED LUNCH. PT RESTING IN BED AT THIS TIME.
--- NOTE | 2020-11-11 15:00 | NUR ---
PT CONT TO BE LARRY AT THIS TIME RUNNING IN THE 40'S WITH LONG PAUSES. PT IS ALERT TO VERBAL STIMULI AND IS STILL AGGRESSIVE WITH POSITION CHANGES, PT PULLING AT BLANKETS AND NURSES HANDS WITH CARES. CALL LIGHT IN REACH , HEART MONITOR ON FREQUENT ROUNDING
[2020-11-11 16:00] VITALS: BP 129/83
[2020-11-11 20:15] VITALS: BP 115/89
--- NOTE | 2020-11-12 02:50 | NUR ---
PT IS ALERT TO SELF. OTHERWISE CONFUSED. CUSSES AT YOU. CONFUSED. LUNGS ARE CLEAR TO ON ROOM AIR. BOWEL SOUNDS ACTIVE X4. ABDOMEN IS SOFT. PT ON RIGHT SIDE SLEEPING PT HAS A FOLY. TAKES MEDS WITH APPLESAUSE. CALL LIGHT WITHIN REACH IF NEEDS ASSISTANCE. BED ALARM ON FOR SAFETY. WILL CONTINUE TO ASSESS AND MONITOR PER NURSING
[2020-11-12 04:45] VITALS: BP 106/70
[2020-11-12 08:00] VITALS: BP 115/55
[2020-11-12 08:05] VITALS: BP 151/69
[2020-11-12 09:00] VITALS: BP 115/55
[2020-11-12 16:10] VITALS: BP 146/44
[2020-11-12 21:07] VITALS: BP 182/87
[2020-11-13] VITALS: BP 154/77
[2020-11-13 04:48] VITALS: BP 130/67
--- NOTE | 2020-11-13 05:15 | NUR ---
pt assisted with turning q2 hrs and prn, no c/o pain, hernandez with minimal dark urine out put, encouraged po intake, tolerating purreed diet with much encouragement, will con't to monitor per ppoc.
[2020-11-13 07:15] VITALS: BP 165/80
--- NOTE | 2020-11-13 13:24 | NUR ---
PT RESTING COMFORTABLY. WILL FOLLOW COMMANDS BUT DOES NOT WANT TO WORK WITH STAFF. PT REFUSED PT/OT TODAY. PT NEEDS TO EAT MORE BUT REFUSES. PT AFEBRILE, OLIGURIC (PROVIDERS AWARE), NO BM. SPOKE WITH AND CASE MANAGEMENT, THEY ARE WORKING ON A PLAN FOR FURTHER CARE. PT AND HAVE BEEN UPDATED AND EDUCATED ON PT CONDITION AND POC. PT SLOWLY PROGRESSING TOWARDS POC.
--- NOTE | 2020-11-13 14:00 | NUR ---
FAXED CLINICAL UPDATE TO [facility] RECEIVED CONFIRMATION AND LEFT MSG WITH MATEO IN ADM.
[2020-11-13 15:05] VITALS: BP 141/69
--- NOTE | 2020-11-13 17:09 | NUR ---
spoke with spouse. He wants skilled rehab for patient at [facility]. 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 he has does not want to return to the [facility]isted [facility] memory care at [facility]. He is agreeable to clinical information be faxed to [facility] to review. At this time no auth from ins for skilled care.
--- NOTE | 2020-11-13 19:06 | PATH ---
[facility] [place] [address] PATHOLOGY RPT PROCEDURE Name: Room #: 216-P ADM IN M.R.#: [id number] Admission: 11/09/20 Date of : [birth year] Discharge: Report #: [id number] Path Case #: [id number] [facility] Accession Number: [id number] . 01 Material submitted: . stomach - BIOPSY GASTRITIS RULE OUT H. PYLORI . 01 Clinical history: . EGD PRE-OP DIAGNOSIS: GERD, POSITIVE HEMOCULT POST-OP DIAGNOSIS: HIATAL HERNIA, MULTIPLE ULCERS,GASTRITIS . 02 Diagnosis: Gastric mucosa, gastritis, rule out H. pylori, endoscopic biopsy: - Helicobacter pylori induced mild active gastritis. - Negative for intestinal dysplasia or atrophy. - Mild number of Helicobacter pylori organisms present on the properly controlled immunohistochemical stain. (IUV:pit 11/13/2020) QTP 11/13/2020 1812 Local . 02 Electronically signed: . Ciara Mccall MD, Pathologist NPI- [id number] . 01 Gross description: . Received in formalin labeled "January, biopsy gastritis rule H. pylori" are multiple jones-brown soft tissue fragments measuring in aggregate 1.1 x 0.4 x 0.3 cm. The specimen is submitted entirely in A1. ([facility]; 11/12/2020) . GZA/GZA 11/12/2020 1020 Local . 02 Pathologist provided ICD-10: K29.70, B96.81 . 02 CPT . 739174, [id number] Specimen Comment: A courtesy copy of this report has been sent to [phone], [phone] Specimen Comment: [phone] Specimen Comment: Report sent to / DR WAGGONER Performed at: [address] [id number] MD Diego Lange MD Phone: [phone] Performed at: 02 [place] [address] PATHOLOGY RPT PROCEDURE Name: Room #: 216-P ADM IN M.R.#: [id number] Admission: 11/09/20 Date of : [birth year] Discharge: Report #: [id number] Path Case #: [id number] [place] [id number] MD Ciara Mccall MD Phone: [phone]
[2020-11-13 20:10] VITALS: BP 169/57
[2020-11-14 04:25] VITALS: BP 128/55
--- NOTE | 2020-11-14 06:17 | NUR ---
ALERT,CONFUSED,REPOSITION HERSELF IN BED.DENIES PAIN.BARTLETT TO DD.POC CONTINUED
[2020-11-14 07:45] VITALS: BP 152/70
--- NOTE | 2020-11-14 13:54 | NUR ---
Spoke with dtr and updated regarding facilities visiting hours. She wants to discuss with her brother and [facility]
--- NOTE | 2020-11-14 14:54 | NUR ---
FAXED CLINICAL UPDATE TO [facility] RECEIVED CONFIRMATION SPOKE WITH SINAN IN ADM THEY RECEIVED INFO.
--- NOTE | 2020-11-14 14:59 | NUR ---
FAXED CLINICAL UPDATE TO [facility] RECEIVED CONFIRMATION AND LEFT MSG WITH BELLE IN ADM.
[2020-11-14 15:45] VITALS: BP 155/62
--- NOTE | 2020-11-14 15:55 | NUR ---
faxed referral to [facility]. Sp with Kami Johns who does not have a working fax. Julieth Key to come to hospital to roll picker packet to review for patient. At [facility]. casemgt following.
--- NOTE | 2020-11-14 18:48 | NUR ---
CONFUSED. SLEEPS A LOT; HER STATES THAT IS NORMAL FOR HER. PT AND OT TRY WORKING WITH HER. DEBORA, DARIAN, WORKING ON [facility] D/T 'S REQUEST. NO TELE. FALL PRECAUTIONS IN PLACE.
[2020-11-14 19:16] VITALS: BP 157/77
[2020-11-15 03:50] VITALS: BP 138/63
--- NOTE | 2020-11-15 04:32 | NUR ---
SLEPT MOST OF SHIFT. TURNS SELF IN BED. REMAINS CONFUSED. BED ALARM ON FOR SAFETY. WORKING ON GOALS AND PLAN OF CARE FOR NOC. PROGRESSING TOWARDS DISCHARGE GOALS SLOWLY. DENIES COMPLAINTS THIS SHIFT. CONTINUE TO ASSES CLOSELY.
[2020-11-15 07:55] VITALS: BP 138/91
--- NOTE | 2020-11-15 09:09 | P ---
[facility] [place] [address] [address] PROCEDURE REPORT Name: Room #: 216-P ADM IN M.R.#: [id number] Admission: 11/09/20 Attend Phys: Tori Segura MD Discharge: Date of : [birth year] Report #: [id number] THIS REPORT FOR: cc: FAM - Family physician unknown FAM - Family physician unknown Tito Wheeler MD ~ DATE OF SERVICE: 11/10/2020 PROCEDURE PERFORMED: Upper endoscopy with biopsies. HISTORY OF PRESENT ILLNESS: The patient is an 89-year-old female who had a syncopal episode recently at retirement, was noted to have an admission hemoglobin of 7.1, which dropped to 5.9 and history of CVA, was on aspirin at one point recently. She is now receiving her first of 2 units of packed cells. Unable to get much history from the patient as she has a history of dementia. She denies any nausea, vomiting or abdominal pain. She was on a pureed diet at the retirement apparently. Stools are Hemoccult positive here on admission. Plan is for upper endoscopy. DESCRIPTION OF PROCEDURE: The risks and benefits of the procedure were explained to the patient's , those risks including but not limited to bleeding, perforation and the risk of sedation. He understood these risks and gave informed consent. Sedation was given using propofol per anesthesia. Next, using a standard Olympus upper endoscope, the scope was placed in the patient's mouth and advanced under direct vision through the esophagus, stomach and into the second portion of the duodenum. Esophagus was normal throughout. The GE junction was normal. Upon entering the stomach, a small hiatal hernia was noted. The gastric fundus and upper body were normal. A diffuse gastritis was noted in the distal body and antrum. Several linear ulcerations were noted in the antrum. No evidence of active bleeding. A large prepyloric ulcer, clean white based approximately 2.5 cm was noted just before the pylorus, no active bleeding. The pylorus was normal and patent. The duodenal bulb, first and second portion were all normal. There was no evidence of blood throughout the exam today. The scope was then brought back up into the patient's stomach and biopsies were obtained to rule out H. pylori. The scope was then withdrawn and the procedure terminated. The patient tolerated the procedure well. IMPRESSION: 1. Large clean white based ulcer prepyloric region, likely source of recent gastrointestinal bleed. 2. Gastritis with multiple linear ulcerations in the antrum and lower body, also a possible source of gastrointestinal bleed. No evidence of active bleeding on exam today. 3. Small hiatal hernia. 4. Otherwise, normal upper endoscopy. [facility] [address] [place] [address] PROCEDURE REPORT Name: Room #: 216-P ADM IN M.R.#: [id number] Admission: 11/09/20 Attend Phys: Tori Segura MD Discharge: Date of : [birth year] Report #: [id number] RECOMMENDATIONS: 1. Await biopsy results. 2. Continue PPI therapy b.i.d. 3. We will add Carafate at this time. 4. We will reintroduce pureed diet. 5. Continue to monitor hemoglobin closely. 6. Continue to hold NSAIDs. Thank you for allowing me to participate in her care. <ELECTRONICALLY SIGNED> By: Tito Wheeler MD 11/15/20 0909 1044 [id number] Tito Wheeler MD /nt
[2020-11-15 09:27] LABS: HEMATOCRIT 30.3 % (37.0-47.0); HEMOGLOBIN 10.1 gm/dL (12.0-15.0); MCH 34.8 pg (26.0-34.0); MCHC 33.3 g/dL (28.0-37.0); MCV 104.5 fL (80.0-100.0); RBC 2.9 mil/uL (4.20-5.00); RDW 21.2 % (10.5-14.5)
[2020-11-15] MEDS ORDERED: ASPIRIN EC325 M1 PO (14:58)
[2020-11-15] MEDS ORDERED: CLARITHROMYCIN250 M2 PO (14:58)
[2020-11-15] MEDS ORDERED: AMOXICILLIN 50500 MG PO (14:58)
[2020-11-15] MEDS ORDERED: PROBIOTIC1 EAC7 PO (15:01)
[2020-11-15 15:20] VITALS: BP 120/55
--- NOTE | 2020-11-15 15:23 | NUR ---
Insurance denied skilled rehab. Phys completed peer to peer and [facility] rec auth. SP with spouse at bedside. Discussed other memory care facilities. Discussed hospice services. Planned skilled at [facility]. Transport 1600. dc city planner to fax orders. chart copied. Spouse in agreement.
--- NOTE | 2020-11-15 16:18 | NUR ---
ASSUMED CARE OF PT AT SHIFT CHANGE. ASSESSMENT CHARTED. MEDS GIVEN PER OCT. PT ALERT TO SELF, NO APPARENT PAIN. PT VERY DROWZY ALL SHIFT, IN CHAIR PART OF AFTERNOON. VISITED IN AFTERNOON. DISCHARGE ORDERS COMPLETE. IV AND TELE ARI'Jane BARTLETT IN PLACE. TRANSPORTED TO FACILITY VIA WHEELCHAIR VAN.
--- NOTE | 2020-11-15 16:19 | NUR ---
FAXED DC ORDERS/SUMMARY TO [facility] RECEIVED CONFIRMAITON AND LEFT MSG WITH BELLE/MATEO IN ADM.
== END 2020-11-15 16:46 | DRG 377 ==
LOC: ER 07:59 → 2N 09:48 → EROBS 09:48 → 2N 17:12
PROVIDERS: Emergency Medicine; Hospitalist; Nurse Practitioner; ADMIT Internal Medicine; ATTEND Internal Medicine
PROC: 30233N1 Transfusion of Nonautologous Red Blood Cells into Peripheral Vein, Percutaneous Approach (ICD-10-PCS; principal; 2020-11-09)
PROC: 0DB68ZX Excision of Stomach, Via Natural or Artificial Opening Endoscopic, Diagnostic (ICD-10-PCS; 2020-11-10)
DX: K29.71 Gastritis, unspecified, with bleeding (principal); E43 Unspecified severe protein-calorie malnutrition; D62 Acute posthemorrhagic anemia; N39.0 Urinary tract infection, site not specified; Z68.1 Body mass index [BMI] 19.9 or less, adult; K25.4 Chronic or unspecified gastric ulcer with hemorrhage; Z20.822 Contact with and (suspected) exposure to COVID-19; F03.90 Unspecified dementia, unspecified severity, without behavioral disturbance, psychotic disturbance, mood disturbance, and anxiety; E78.5 Hyperlipidemia, unspecified; I48.91 Unspecified atrial fibrillation; K44.9 Diaphragmatic hernia without obstruction or gangrene; Z66 Do not resuscitate; D53.9 Nutritional anemia, unspecified; R13.10 Dysphagia, unspecified; Z79.1 Long term (current) use of non-steroidal anti-inflammatories (NSAID); Z87.891 Personal history of nicotine dependence; Z79.82 Long term (current) use of aspirin; Z79.899 Other long term (current) drug therapy; Z86.73 Personal history of transient ischemic attack (TIA), and cerebral infarction without residual deficits
CPT/HCPCS: 10081; 62110; 62900; 70005